=== PATIENT | female | born 2000 | race Native Hawaiian/Other Pacific Islander ===

== ENCOUNTER 2019-02-10 01:16 | Emergency (ER) | payer BC ==
[~2019-02-10] VITALS: Ht 165.1 cm; Wt 117.9 kg
[2019-02-10 02:26] LABS: INFLUENZA A ANTIGEN Negative (Negative)
[2019-02-10] MEDS ORDERED: TAMIFLU75 MG PO (02:32)
[2019-02-10 02:41] VITALS: BP 154/78
== END 2019-02-10 02:42 | disposition home or self-care (01) ==
LOC: M.ERS 01:16
PROVIDERS: Emergency Medicine Emergency Medical Services
DX: J10.1 Influenza due to other identified influenza virus with other respiratory manifestations (principal); F17.210 Nicotine dependence, cigarettes, uncomplicated